=== PATIENT | male | born 1960 | race Caucasian/White ===

== ENCOUNTER 2019-10-18 03:53 | Emergency (ER) | payer OTHER ==
[~2019-10-18] VITALS: Ht 182.9 cm; Wt 99.8 kg
[2019-10-18] MEDS ORDERED: METOPROLOL SUCC25 MG PO (04:02)
== END 2019-10-18 06:40 | disposition home or self-care (01) ==
LOC: ED 03:53
DX: R04.0 Epistaxis (principal); I10 Essential (primary) hypertension; F17.200 Nicotine dependence, unspecified, uncomplicated; Z79.899 Other long term (current) drug therapy
CPT/HCPCS: 99283